=== PATIENT | female | born 2000 | race Hispanic/Latino ===

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

== ENCOUNTER 2021-05-08 21:31 | Emergency (ER) | payer OTHER, SELFPAY ==
[2021-05-08 22:57] LABS: Urine Blood Trace-intact (Negative); Urine Glucose Negative (Negative); Urine Protein Negative (Negative); Urine Specific Gravity 1.025 (1.005-1.030)
[2021-05-08 23:25] LABS: Absolute Lymphocytes (CBC) 2.9 K/uL (0.7-4.9); Basophils % 0.7 % (0-1.3); Lymphocytes % 27.2 % (15.3-44.8); MPV 8.4 fL (7.6-11.3); RBC Red Blood Cell Count 4.18 M/uL (3.86-4.86)
[2021-05-08 23:35] LABS: Urine RBC <5 /HPF (NONE SEEN)
[2021-05-08 23:36] LABS: Urine Bacteria <20 /HPF (<20)
[2021-05-08 23:59] LABS: Urine Specific Gravity/Preg 1.025 (1.005-1.030)
[2021-05-09 00:37] LABS: BUN Blood Urea Nitrogen 8 mg/dL (7-18); Bicarbonate 28 mmol/L (21-32); Glucose Level 106 mg/dL (74-106); HCG, Quantitative 3669 mIU/mL (1-3); Potassium 3.4 mmol/L (3.5-5.1); Sodium Level 140 mmol/L (136-145)
--- NOTE | 2021-05-09 02:34 | ER ---
Nurse's Notes [facility] Name: Flor Perez Age: 20 yrs Sex: Female : 2000 Arrival Date: 05/08/2021 Time: 21:36 Bed 20 Private MD: Diagnosis: Lower abdominal pain, unspecified Presentation: 05/08 21:41 Chief complaint: Patient states: pressure on bladder since 16:30 today. Coronavirus da3 screen: Vaccine status: Patient reports receiving the 2nd dose of the covid vaccine. Ebola Screen: No symptoms or risks identified at this time. Initial Sepsis Screen: Does the patient meet any 2 criteria? No. Patient's initial sepsis screen is negative. Does the patient have a suspected source of infection? No. Patient's initial sepsis screen is negative. Risk Assessment: Do you want to hurt yourself or someone else? Patient reports no desire to harm self or others. Onset of symptoms was May 08, 2021. 21:41 Method Of Arrival: Ambulatory da3 21:41 Acuity: ZACHARIAH 3 da3 Triage Assessment: 21:43 General: Appears in no apparent distress. comfortable, Behavior is calm, cooperative. da3 Pain: Complains of pain in abdomen Pain at worst was 6 out of 10 on a pain scale. 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 - Social history:: Smoking status: Patient reports the use of cigarette tobacco products, Patient denies any tobacco usage or history of. Screenin:15 Abuse screen: Denies threats or abuse. Nutritional screening: No deficits noted. as6 Tuberculosis screening: No symptoms or risk factors identified. Fall Risk None identified. Assessment: 23:14 General: Appears in no apparent distress. comfortable, Behavior is calm, cooperative. as6 Pain: Complains of pain in suprapubic area Quality of pain is described as pressure. Neuro: Level of Consciousness is awake, alert, obeys commands, Oriented to person, place, time, situation. Cardiovascular: Capillary refill < 3 seconds Patient's skin is warm and dry. Respiratory: Airway is patent Trachea midline Respiratory effort is even, unlabored, Respiratory pattern is regular, symmetrical, Breath sounds are clear bilaterally. GI: Reports lower abdominal pain, cramping. : Reports cramping, in bilateral lower quadrant(s). Derm: Skin is intact, is healthy with good turgor. 05/09 00:17 Reassessment: Patient and/or family updated on plan of care and expected duration. Pain as6 level reassessed. Patient is alert, oriented x 3, equal unlabored respirations, skin warm/dry/pink. 00:50 Reassessment: pt in ultrasound. as6 Vital Signs: 05/08 21:41 BP 124 / 77; Pulse 86; Resp 18; Temp 98.5; Pulse Ox 100% on R/A; Weight 47.63 kg; da3 Height 5 ft. 2 in. (157.48 cm); 22:48 BP 115 / 82; Pulse 77; Resp 18 S; Pulse Ox 100% on R/A; as6 23:53 BP 115 / 79; Pulse 81; Resp 18 S; Pulse Ox 100% on R/A; as6 05/09 01:29 BP 110 / 70; Pulse 77; Resp 16 S; Pulse Ox 98% on R/A; as6 02:36 BP 103 / 57; Pulse 72; Resp 18 S; Pulse Ox 99% on R/A; as6 05/08 21:41 Body Mass Index 19.20 (47.63 kg, 157.48 cm) da3 ED Course: 05/08 21:36 Patient arrived in ED. wm 21:43 Triage completed. da3 21:43 Arm band placed on right wrist. da3 22:49 Elton James, JOHN is Primary Nurse. as6 22:50 Jerel Benitez PA is PHCP. jr8 22:50 Jimmie Muro MD is Attending Physician. jr8 23:13 Inserted saline lock: 20 gauge in right antecubital area, using aseptic technique. ds4 Blood collected. 23:15 Placed in gown. Bed in low position. Call light in reach. Side rails up X2. Adult w/ as6 patient. Pulse ox on. NIBP on. Warm blanket given. 05/09 01:22 US Transvaginal Ob In Process Unspecified. EDMS 02:50 No provider procedures requiring assistance completed. IV discontinued, intact, as6 bleeding controlled, No redness/swelling at site. Pressure dressing applied. Administered Medications: No medications were administered Outcome: 02:34 Discharge ordered by . nelly 02:50 Discharged to home ambulatory, with family. as6 02:50 Condition: stable 02:50 Discharge instructions given to patient, Instructed on discharge instructions, follow up and referral plans. Demonstrated understanding of instructions, follow-up care. 02:50 Patient left the ED. as6 Signatures: Dispatcher [employer] EDMS Jerel Benitez PA PA jr8 Raul Coppola ds4 Tamera Mrelos David, RN RN da3 Elton James, RN RN as6
--- NOTE | 2021-05-09 02:34 | EDPHYS ---
Physician Documentation [facility] Name: Flor Perez Age: 20 yrs Sex: Female : 2000 Arrival Date: 05/08/2021 Time: 21:36 Bed 20 Private MD: ED Physician Jimmie Muro HPI: 05/08 23:08 This 20 yrs old Female presents to ER via Ambulatory with complaints of Lower jr8 abdominal discomfort. 23:08 The patient presents to the emergency department with abdominal pain, of the suprapubic jr8 area, that started today. course: care: none, Leakage of Fluid: none appreciated, Ultrasound: the patient has not had an ultrasound, Risk/complications: no obvious risks or complications are appreciated. Previous pregnancies: the patient has never been . Associated signs and symptoms: The patient has no apparent associated signs or symptoms. The patient has not experienced similar symptoms in the past. The patient has not recently seen a physician. 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 - Social history:: Smoking status: Patient reports the use of cigarette tobacco products, Patient denies any tobacco usage or history of. ROS: 23:08 Eyes: Negative for injury, pain, redness, and discharge, ENT: Negative for injury, jr8 pain, and discharge, Neck: Negative for injury, pain, and swelling, Cardiovascular: Negative for chest pain, palpitations, and edema, Respiratory: Negative for shortness of breath, cough, wheezing, and pleuritic chest pain, Back: Negative for injury and pain, MS/Extremity: Negative for injury and deformity, Skin: Negative for injury, rash, and discoloration, Neuro: Negative for headache, weakness, numbness, tingling, and seizure. 23:08 Abdomen/GI: Positive for abdominal pain, Negative for nausea, vomiting, and diarrhea. Exam: 23:08 Constitutional: This is a well developed, well nourished patient who is awake, alert, jr8 and in no acute distress. Cardiovascular: Regular rate and rhythm with a normal S1 and S2. No gallops, murmurs, or rubs. Normal PMI, no JVD. No pulse deficits. Respiratory: Lungs have equal breath sounds bilaterally, clear to auscultation and percussion. No rales, rhonchi or wheezes noted. No increased work of breathing, no retractions or nasal flaring. Back: No spinal tenderness. No costovertebral tenderness. Full range of motion. Skin: Warm, dry with normal turgor. Normal color with no rashes, no lesions, and no evidence of cellulitis. MS/ Extremity: Pulses equal, no cyanosis. Neurovascular intact. Full, normal range of motion. Neuro: Awake and alert, GCS 15, oriented to person, place, time, and situation. Cranial nerves II-XII grossly intact. Motor strength 5/5 in all extremities. Sensory grossly intact 23:08 Abdomen/GI: Inspection: abdomen appears normal, Bowel sounds: active, all quadrants, Palpation: soft, in all quadrants, mild abdominal tenderness, in the suprapubic area, right lower quadrant and left lower quadrant, mass, is not appreciated, rebound tenderness, is not appreciated, voluntary guarding, is not appreciated, involuntary guarding, is not appreciated, no appreciated organomegaly, Indicators: McBurney's point is not tender, Scherer's sign is negative, Rovsing's sign is negative, Liver: tenderness, is not appreciated. Vital Signs: 21:41 BP 124 / 77; Pulse 86; Resp 18; Temp 98.5; Pulse Ox 100% on R/A; Weight 47.63 kg; da3 Height 5 ft. 2 in. (157.48 cm); 22:48 BP 115 / 82; Pulse 77; Resp 18 S; Pulse Ox 100% on R/A; as6 23:53 BP 115 / 79; Pulse 81; Resp 18 S; Pulse Ox 100% on R/A; as6 05/09 01:29 BP 110 / 70; Pulse 77; Resp 16 S; Pulse Ox 98% on R/A; as6 02:36 BP 103 / 57; Pulse 72; Resp 18 S; Pulse Ox 99% on R/A; as6 05/08 21:41 Body Mass Index 19.20 (47.63 kg, 157.48 cm) da3 MDM: 05/08 22:50 Patient medically screened. [facility] 05/09 02:30 Data reviewed: vital signs, nurses notes, lab test result(s), radiologic studies, [facility] ultrasound. Data interpreted: Pulse oximetry: on room air is 98 %. Interpretation: normal. Counseling: I had a detailed discussion with the patient and/or guardian regarding: the historical points, exam findings, and any diagnostic results supporting the discharge/admit diagnosis, lab results, radiology results, the need for outpatient follow up, an OB/Gyne specialist, to return to the emergency department if symptoms worsen or persist or if there are any questions or concerns that arise at home. ED course: Discussed with patient that her hCG is in the 3000s at this time. No identifiable intrauterine noted on ultrasound at this time. This could be secondary to early based on her last menstrual period or could be early signs of ectopic. Patient needs to have a redraw of hCG on which is 48 hours to see if it doubles. Patient also needs to have another ultrasound done by end of week or first of next week as well. Patient is supposed to see her OB in 2 weeks but stated that she will call tomorrow morning to see if they can get her in sooner. They cannot I requested that patient come back in 48 hours for the redraw. Patient good with this at this time and knows to come back if she were to acutely worsening point time.. 05/08 22:20 Order name: Urine Microscopic Only; Complete Time: 23:36 [facility] 05/08 22:56 Order name: Urine Dipstick-Ancillary; Complete Time: 22:59 EDMI 05/08 22:59 Order name: Basic Metabolic Panel; Complete Time: 00:39 [facility] 05/08 22:59 Order name: CBC with Diff; Complete Time: 23:43 [facility] 05/08 22:59 Order name: Quantitative Hcg; Complete Time: 00:39 [facility] 05/08 23:02 Order name: Urine --Ancillary (enter results); Complete Time: 00:00 mw2 05/08 22:20 Order name: Urine Dipstick-Ancillary (obtain specimen); Complete Time: 22:55 [facility] 05/08 22:20 Order name: Urine Test (obtain specimen); Complete Time: 22:56 jr8 05/08 22:59 Order name: IV Saline Lock; Complete Time: 23:13 jr8 05/08 22:59 Order name: Labs collected and sent; Complete Time: 23:13 jr8 05/09 00:39 Order name: US Transvaginal Ob jr8 Administered Medications: No medications were administered Disposition: 13:05 Co-signature as Attending Physician, Jimmie Muro MD I agree with the assessment and carl plan of care. Disposition Summary: 05/09/21 02:34 Discharge Ordered Location: Home jr8 Problem: new jr8 Symptoms: have improved jr8 Condition: Stable jr8 Diagnosis - Lower abdominal pain, unspecified jr8 Followup: jr8 - With: Private Physician - When: 48 Hours - Reason: Recheck today's complaints, Continuance of care, Repeat Beta-HCG (48 Hours), Re-evaluation by your physician Discharge Instructions: - Discharge Summary Sheet jr8 - Ectopic jr8 Forms: - Medication Reconciliation Form jr8 - Thank You Letter jr8 - Antibiotic Education jr8 - Prescription Opioid Use jr8 Signatures: Dispatcher [employer] EDJimmie Fields MD MD cha Roszak, Josh, PA PA jr8 Rakesh Donnelly, RN RN da3
[2021-05-09 03:00] VITALS: TEMP 98.5
[2021-05-09 03:05] VITALS: BP 103/57; O2SAT 99
--- NOTE | 2021-05-09 12:36 | RAD REPORT ---
EXAM DESCRIPTION: US - Transvaginal OB - 05/09/2021 2:25 am CLINICAL HISTORY: 20 years Female, r/o ectopic;Abd pain COMPARISON: None. TECHNIQUE: Sonographic imaging of pelvis performed using a transvaginal transducer. FINDINGS: Uterus appears anteverted measuring 5.7 cm x 3.2 cm x 3.5 cm. Endometrial thickness is amy roximately 0.4 cm. No evidence of an intrauterine . Right ovary measures 4.8 cm x 3.9 cm x 4.1 cm. There is a simple-appearing, anechoic 3.6 cm cyst in t he right ovary. Left ovary measures 3.6 cm x 2.2 cm x 2.4 cm. Both ovaries demonstrate Doppler flow. No adnexal mass. There is a moderate amount of hypoechoic free fluid in the pelvis. IMPRESSION: 1. No evidence of an intrauterine which could be related to early or failed first trimester with ectopic not entirely excluded. Consider close interm ittent follow-up ultrasound correlated with beta-hCG level. 2. Moderate amount of free fluid in the pelvis. 3. Simple appearing right ovarian cyst measuring up to 3.6 cm, likely physiologic. Electronically signed by: Madan Thornton MD 05/09/2021 1:58 AM CONSTRUCTION REP Due to temporary technical issues with the PACS/Fluency reporting system, reports are being signed by the in house radiologist without review as a courtesy to ensure prompt reporting. The interpreting r adiologist is fully responsible for the content of the report.
== END 2021-05-09 02:50 | disposition home or self-care (01) ==
LOC: ER 21:31
DX: R10.30 Lower abdominal pain, unspecified (principal); F17.210 Nicotine dependence, cigarettes, uncomplicated
CPT/HCPCS: 36415; 76817; 80048; 81003; 81015; 81025; 84702; 85025; 99284

== ENCOUNTER 2021-05-18 13:30 | Emergency (ER) | payer OTHER ==
--- NOTE | 2021-05-18 15:36 | RAD REPORT ---
EXAM DESCRIPTION: US - Transvaginal OB - 05/18/2021 3:12 pm CLINICAL HISTORY: with abdominal pain COMPARISON: May 09, 2021 FINDINGS: The uterus measures 6 x 4 x 4 centimeters. The endometrial stripe is normal thickness. A fibroid is not seen. A gestational sac is not visualized 3.8 centimeter right ovarian cyst. Blood flow to the right ovary is present. Left ovary is normal in size and echotexture. The right and left adnexa unremarkable No significant free fluid IMPRESSION: Nonvisualization of a gestational sac within the endometrium. These findings could represent an early intrauterine in which the gestational sac is not se en. and even an ectopic can also result in this appearance. This all should be cor related clinically and with serial beta HCG levels. Followup endovaginal sonogram in 1 week recommend ed 3.8 centimeter right ovarian cyst
[2021-05-18 17:07] LABS: Absolute Lymphocytes (CBC) 1.1 K/uL (0.7-4.9); Basophils % 0.1 % (0-1.3); Hematocrit 37.6 % (36.0-45.0); Lymphocytes % 6.6 % (15.3-44.8); MPV 8.3 fL (7.6-11.3); RBC Red Blood Cell Count 4.01 M/uL (3.86-4.86)
[2021-05-18 17:24] LABS: BUN Blood Urea Nitrogen 9 mg/dL (7-18); Bicarbonate 27 mmol/L (21-32); Glucose Level 111 mg/dL (74-106); Potassium 3.8 mmol/L (3.5-5.1); Sodium Level 138 mmol/L (136-145)
--- NOTE | 2021-05-18 17:53 | EDPHYS ---
Physician Documentation [facility] Name: Flor Perez Age: 20 yrs Sex: Female : 2000 Arrival Date: 05/18/2021 Time: 13:32 Bed 11 Private MD: ED Physician Thompson Woo HPI: 05/18 23:24 This 20 yrs old Female presents to ER via Wheelchair with complaints of 7 Wks kb Preg- Vag Pain. 23:24 The patient presents to the emergency department with abdominal pain, described as kb crampy. course: care: at a clinic. Previous pregnancies: the patient has never been . Associated signs and symptoms: Pertinent positives: abdominal pain, Pertinent negatives: vaginal bleeding, vaginal discharge. The patient has not experienced similar symptoms in the past. The patient has been recently seen by a physician:. Pt states she came here over a week ago for abd cramping, had blood and US done and told to follow up. Pt followed up with OB a few days later and had labs repeated. Came in today for continued abd cramping. 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 - Social history:: Smoking status: Patient denies any tobacco usage or history of. ROS: 23:24 Constitutional: Negative for fever, chills, and weight loss. kb 23:24 Abdomen/GI: Positive for abdominal cramps. 23:24 All other systems are negative. Exam: 23:24 Constitutional: This is a well developed, well nourished patient who is awake, alert, kb and in no acute distress. Head/Face: Normocephalic, atraumatic. ENT: Moist Mucous membranes Respiratory: Respirations even and unlabored. No increased work of breathing. Talking in full sentences Skin: Warm, dry with normal turgor. Normal color. MS/ Extremity: Pulses equal, no cyanosis. Neurovascular intact. Full, normal range of motion. Neuro: Awake and alert, GCS 15, oriented to person, place, time, and situation. Moves all extremities. Normal gait. Psych: Awake, alert, with orientation to person, place and time. Behavior, mood, and affect are within normal limits. 23:24 Abdomen/GI: Inspection: abdomen appears normal, Bowel sounds: normal, in all quadrants, Palpation: soft, in all quadrants, mild abdominal tenderness, in all quadrants. Vital Signs: 14:25 Pulse 68; Resp 16; Temp 97.5; Pulse Ox 100% on R/A; Weight 46.27 kg; Height 5 ft. 2 in. ss (157.48 cm); Pain 8/10; 14:27 BP 96 / 78; ss 14:25 Body Mass Index 18.66 (46.27 kg, 157.48 cm) ss MDM: 14:34 Patient medically screened. kb 16:28 Data reviewed: vital signs, nurses notes. Data interpreted: Pulse oximetry: on room air kb is 100 %. Interpretation: normal. Physician consultation: Ronald Babb MD. 16:44 Physician consultation: Ronald Babb MD was contacted at 16:44, regarding admission, kb consult, patient's condition, and will see patient in inpatient room. 23:21 Counseling: I had a detailed discussion with the patient and/or guardian regarding: the kb historical points, exam findings, and any diagnostic results supporting the discharge/admit diagnosis, lab results, radiology results, the need for outpatient follow up, an OB/Gyne specialist, to return to the emergency department if symptoms worsen or persist or if there are any questions or concerns that arise at home. 23:22 ED course: Dr Babb came to evaluate the patient and discuss options. Pt decided to go kb home without getting Methotrexate at this time and will follow up with OB at [facility]. Risks given to pt. Pt given strict return precautions by Dr Babb and myself. Verbal understanding of all instructions received. . 05/18 14:29 Order name: HCG-Quantitative ss 05/18 14:30 Order name: HCG, Quantitative; Complete Time: 16:24 EDMS 05/18 16:36 Order name: Abo/rh Typing kb 05/18 16:36 Order name: Basic Metabolic Panel; Complete Time: 17:34 kb 05/18 16:36 Order name: CBC with Diff; Complete Time: 18:25 kb 05/18 14:28 Order name: US Transvaginal Ob; Complete Time: 15:38 ss 05/18 16:36 Order name: IV Saline Lock; Complete Time: 16:56 kb 05/18 16:36 Order name: Labs collected and sent; Complete Time: 16:56 kb 05/18 16:36 Order name: NPO; Complete Time: 16:56 kb 05/18 16:36 Order name: COVID-19 SARS RT PCR (Document "Date of Onset" if Symptomatic); Complete kb Time: 17:47 05/18 16:36 Order name: ABO/RH typing; Complete Time: 17:38 EDMS 05/18 18:21 Order name: CBC Smear Scan; Complete Time: 18:25 EDMS 05/18 18:43 Order name: ABO/RH no charge; Complete Time: 18:46 EDMS Administered Medications: No medications were administered Disposition Summary: 05/18/21 17:52 Discharge Ordered Location: Home kb Condition: Stable kb Diagnosis - Abdominal pain, Generalized - possible ectopic kb Followup: kb - With: Emergency Department - When: As needed - Reason: Worsening of condition Followup: kb - With: Private Physician - When: 2 - 3 days - Reason: Recheck today's complaints, Continuance of care, Re-evaluation by your physician Discharge Instructions: - Discharge Summary Sheet kb - Methotrexate Treatment for an Ectopic kb - Abdominal Pain During , [id number] kb - Ectopic , Soca-of-Pong kb Forms: - Medication Reconciliation Form kb - Thank You Letter kb - Antibiotic Education kb - Prescription Opioid Use kb Addendum: 05/23/2021 13:10 Co-signature as Attending Physician, Thompson Woo MD I agree with the assessment and k dr plan of care. Signatures: Dispatcher [employer] EDMS Baylee Montero, PROFESSOR OF SPORT MANAGEMENT-C ESTHER-Thompson Elise MD MD [facility] Sita El RN RN ss Corrections: (The following items were deleted from the chart) 05/18 23:24 23:22 ED course: Dr Babb came to evaluate the patient and discuss options. Pt decided kb to go home without getting Methotrexate at this time and will follow up with OB at [facility]. . kb
--- NOTE | 2021-05-18 17:53 | ER ---
Nurse's Notes [facility] Name: Flor Perez Age: 20 yrs Sex: Female : 2000 Arrival Date: 05/18/2021 Time: 13:32 Bed 11 Private MD: Diagnosis: Abdominal pain, Generalized-possible ectopic Presentation: 05/18 14:25 Chief complaint: Patient states: lower abd cramping that began 1.5 hours ago. Pt ss reports she is 7 weeks . Coronavirus screen: Client denies travel out of the [place] in the last 14 days. Ebola Screen: Patient denies exposure to infectious person. Patient denies travel to an Ebola-affected area in the 21 days before illness onset. Initial Sepsis Screen: Does the patient meet any 2 criteria? No. Patient's initial sepsis screen is negative. Does the patient have a suspected source of infection? No. Patient's initial sepsis screen is negative. Risk Assessment: Do you want to hurt yourself or someone else? Patient reports no desire to harm self or others. Onset of symptoms was May 18, 2021. 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 - Social history:: Smoking status: Patient denies any tobacco usage or history of. Screenin:45 Abuse screen: Denies threats or abuse. Denies injuries from another. Nutritional ss screening: No deficits noted. Tuberculosis screening: Never had TB. Fall Risk None identified. Assessment: 16:38 General: Appears in no apparent distress. uncomfortable, ill, slender, Behavior is ss Denies fever, feeling ill, fatigue, chills. Pain: Complains of pain in abdomen Pain currently is 7 out of 10 on a pain scale. Quality of pain is described as crampy. Neuro: Level of Consciousness is awake, alert, obeys commands, Oriented to person, place, time, situation. Cardiovascular: Capillary refill < 3 seconds is brisk in bilateral fingers Patient's skin is warm and dry. Respiratory: Airway is patent Respiratory effort is even, unlabored, Respiratory pattern is regular, symmetrical. GI: No signs and/or symptoms were reported involving the gastrointestinal system. : Denies urinary frequency, vaginal bleeding. EENT: Nares are clear Oral mucosa is moist. Derm: Skin is intact, is healthy with good turgor, Skin is dry, Skin is pink, warm \T\ dry. normal. 17:45 Reassessment: Patient appears in no apparent distress at this time. No changes from previously documented assessment. 18:00 Reassessment: Dr. Babb at bedside assessing patient. Vital Signs: 14:25 Pulse 68; Resp 16; Temp 97.5; Pulse Ox 100% on R/A; Weight 46.27 kg; Height 5 ft. 2 in. ss (157.48 cm); Pain 8/10; 14:27 BP 96 / 78; ss 14:25 Body Mass Index 18.66 (46.27 kg, 157.48 cm) ED Course: 13:32 Patient arrived in ED. ds1 14:23 Baylee Montero FNP-C is [facility]. kb 14:23 Thompson Woo MD is Attending Physician. kb 14:26 Triage completed. ss 14:26 Arm band placed on right wrist. ss 15:12 Transvaginal Ob In Process Unspecified. EDMS 16:56 Sita El, JOHN is Primary Nurse. ss 16:56 Abo/rh Typing Sent. ss 16:56 Inserted saline lock: 22 gauge in right antecubital area, using aseptic technique. Blood collected. 17:45 Patient has correct armband on for positive identification. Bed in low position. Call light in reach. 18:54 No provider procedures requiring assistance completed. IV discontinued, intact, ss bleeding controlled, No redness/swelling at site. Pressure dressing applied. Administered Medications: No medications were administered Outcome: 17:52 Discharge ordered by . kb 18:55 Discharged to home ambulatory. ss 18:55 Condition: good 18:55 Discharge instructions given to patient, family, Instructed on discharge instructions, follow up and referral plans. medication usage, Demonstrated understanding of instructions, follow-up care. 18:56 Patient left the ED. ss Signatures: Dispatcher [employer] Baylee Cheatham, ESTHER-C CONSTRUCTION CARPENTER-Sofia Wren ds1 Sita El RN RN ss
[2021-05-18 18:21] LABS: Blood Morphology Comment NOT SEEN (NOT SEEN); Platelet Estimate ADEQ; White Blood Cell Scan OK (OK)
--- NOTE | 2021-05-18 18:34 | CON ---
A 20-year-old, primigravida, was seen initially on the for abdominal discomfort. No bleeding. Quantitative level was in the 3600 range. Ultrasound demonstrated adnexal cyst, no masses and nothin g inside the uterus, and no free fluid. The patient was then seen at [facility] on the , was seen by a female acid bleacher over there, who did a pelvic exam. Did quantitative level and risen to 7000. S till no bleeding and was told to come back in 2 weeks and they would do an ultrasound. The patient _ tonight. Her quantitative level is now over 9000 and ultrasound still demonstrates no free fluid, nothing inside the uterus, and the same cyst which is persisting, but not increasing. The dre swartz still has had no bleeding. She is not in any acute distress. Methotrexate has been discussed with the patient. She is somewhat hesitant. She and her family have decided they want to get a seco nd opinion from [facility] in [place] and will either go there tonight which I suggested or in the morning . They know that if she continues to have elevated quantitative levels and nothing inside the uterus . Sooner later decision needs to be made about the methotrexate. They know that this is a medicatio n that can cause problems with the baby if it turns out the is not extrauterine and is insi de the uterus, but at this point with the levels as stated, it is highly unlikely. Her white count i s slightly elevated, but she is a little uncomfortable. She has had no medicines and requesting no m edicines here in the emergency room. She has A positive blood type. I think that her being cautious is reasonable, but she knows that she needs to follow up without fail soon and suggested again she s hould probably go to the emergency room tonight to get another opinion over there and if the levels a re still elevated and they see nothing. I think methotrexate would indeed be a good option. Full discussion with the patient and family. CAITIE/TERRELL Voice ID: [id number] Report ID: [id number]
[2021-05-18 19:10] VITALS: TEMP 97.5; O2SAT 100
[2021-05-18 19:12] VITALS: BP 96/78
== END 2021-05-18 18:56 | disposition home or self-care (01) ==
LOC: ER 13:30
DX: O26.891 Other specified pregnancy related conditions, first trimester (principal); Z3A.01 Less than 8 weeks gestation of pregnancy; Z20.822 Contact with and (suspected) exposure to COVID-19
CPT/HCPCS: 85025; 80048; 36415; 86900; 86901; 84702; 76817; 99283; U0003

== ENCOUNTER 2022-03-22 22:43 | Emergency (ER) | payer OTHER ==
--- OUTSIDE RECORDS SUMMARY | 2022-03-22 22:46 | XMS REPORT | Continuity of Care Document ---
:2000 Author Organization [facility] t Address [address] [place] [address] Care Team Providers Name Role Phone DOLORES GREGORY Primary Care Physician Unavailable DOLORES GREGORY Attending Clinician Unavailable TAMIKO DEY Attending Clinician Unavailable Tamiko Dey MD Attending Clinician Dolores Mccollum Attending Clinician ARUNA GOLD Attending Clinician Unavailable Aruna Wan Attending Clinician Doctor Unassigned, Ramsay Attending Clinician Unavailable Payers Payer Name Policy Type Policy Number Effective Date Expiration Date [facility] [id number] 2021 CHOICE MEDICAID 00:00:00 Problems Condition Condition Condition Status Onset Resolution Last Treating Co mments Source Name Details Category Date Date Treatment Clinician Date No known No known Disease Unive rs active active ity of problems problems [facility] Allergies, Adverse Reactions, Alerts Allergy Allergy Status Severity Reaction(s) Onset Inactive Treating Comm ents Source Name Type Date Date Clinician NO KNOWN Drug Active Univers ALLERGIE Class ity of S [facility] Social History Social Habit Start Date Stop Date Quantity Comments Source Exposure to Not sure [facility] SARS-CoV-2 [facility] (event) Branch Alcohol intake 2021-06-07 2021-06-07 Ex-drinker [facility] 00:00:00 00:00:00 (finding) [facility] Tobacco use and 2021-05-11 2021-05-11 Never used Universit y of exposure 00:00:00 00:00:00 [facility] Sex Assigned At [birth year] Universit y of 00:00:00 00:00:00 [facility] Smoking Status Start Date Stop Date Source Never smoker [facility] Medications Ordered Filled Start Stop Current Ordering Indication Dosage Frequency Signature Comments Components Source Medication Medication Date Date Medication? Clinician (SIG) Name Name ibuprofen 2020-05- No [id number] 800mg Take 1 Univers 800 mg 07-20 tablet by ity of tablet 00:00: 00:00 mouth [place] 00 :00 every 8 Medical (eight) Branch hours. HYDROcodone 2020-05- No [id number] 1{tbl} Take 1 U nivers -acetaminop 07-20 tablet by it y of hen 5-325 00:00: 00:00 mouth [place] mg tablet 00 :00 every 6 Medical (six) Branch hours as needed for Pain (scale 4-6) or Pain (scale 7-10). Indication s: acute pain PNV 67-iron 2020-05- No [id number] 1{capsu Take 1 Univers ps-folate 2-16 06-07 le} capsule by ity of no.1-dha 00:00: 00:00 mouth [place] (VITAFOL 00 :00 daily. Medical ULTRA) 29 Branch mg iron- 1 mg-200 mg Cap Vital Signs Vital Name Observation Time Observation Value Comments Source Systolic blood 2021-06-07 19:06:00 114 mm[Hg] Univer sity of pressure [facility] Diastolic blood 2021-06-07 19:06:00 76 mm[Hg] Unive rsity of pressure [facility] Heart rate 2021-06-07 19:06:00 82 /min [facility] Body temperature 2021-06-07 19:06:00 36.61 [facility] Respiratory rate 2021-06-07 19:06:00 18 /min [facility] Body height 2021-06-07 19:06:00 157.5 cm [facility] Body weight 2021-06-07 19:06:00 47.174 kg [facility] BMI 2021-06-07 19:06:00 19.02 kg/m2 [facility] Body mass index 2021-06-07 19:06:00 15.74 % Unive rsity of (BMI) [Percentile] [facility] Per age and sex Branch Procedures This patient has no known procedures. Encounters Start End Encounter Admission Attending Care Care Encounter Source Date/Time Date/Time Type Type Clinicians Facility Department ID 2021-06-08 2021-06-08 Outpatient Edward GREGORY [facility] [id number] Univers 08:45:00 08:45:00 DOLORESSHAUN pemberton [facility] 2021-06-08 2021-06-08 Outpatient Edward GREGORY [facility] [id number] Univers 08:45:00 08:45:00 DOLORES pemberton [facility] 2021-06-08 2021-06-08 Outpatient Edward GREGORY [facility] [id number] Univers 08:45:00 08:45:00 DOLORES [facility] 2021-06-07 2021-06-07 Outpatient R MYA [facility] [id number] Univers 13:00:00 13:18:55 TAMIKO huertajodi [facility] 2021-06-07 2021-06-07 Office Adnadine, [facility] [id number] Univers 13:00:00 13:18:55 Visit Tamiko JONES [id number] niecy [facility] [id number] Ken RAMSEY [id number] [place] [address] 2021-05-24 2021-05-24 Outpatient P [facility] [id number] Univers 15:30:00 15:30:00 ity [facility] Branch 2021-05-22 2021-05-22 Telephone [facility] [id number] Univers 00:00:00 00:00:00 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 ERT [id number] Univers 22:19:00 07:47:00 [facility] 2021-05-18 2021-05-19 Emergency [facility] [id number] Univers 22:19:00 07:47:00 [facility] [id number] i [id number] [id number] [address] 2021-05-18 2021-05-19 Outpatient X 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 [id number] Fausto as [phone] [place] [address] Branch Results This patient has no known results.
[2022-03-22 23:13] LABS: Urine Blood 3+ (Negative); Urine Glucose Negative (Negative); Urine Protein 1+ (Negative)
--- NOTE | 2022-03-22 23:20 | ER ---
Nurse's Notes [facility] Name: Flor Perez Age: 21 yrs Sex: Female : 2000 Arrival Date: 03/22/2022 Time: 22:45 Bed 4 Private MD: Diagnosis: UTI/ Urinary tract infection, site not specified Presentation: 03/22 22:55 Chief complaint: Patient states: I am pretty sure I have a UTI, I am having lower back tw5 discomfort, it does not really hurt. Coronavirus screen: Vaccine status: Patient reports receiving the 2nd dose of the covid vaccine. Ebola Screen: No symptoms or risks identified at this time. Initial Sepsis Screen: Does the patient meet any 2 criteria? No. Patient's initial sepsis screen is negative. Does the patient have a suspected source of infection? No. Patient's initial sepsis screen is negative. Risk Assessment: Do you want to hurt yourself or someone else? Patient reports no desire to harm self or others. Onset of symptoms was March 22, 2022. 22:55 Method Of Arrival: Ambulatory tw5 22:55 Acuity: ZACHARIAH 3 tw5 Historical: - Allergies: 23:15 No Known Allergies; lg3 - Home Meds: 23:15 None [Active]; lg3 - PMHx: 23:15 None; lg3 - PSHx: 23:15 None; lg3 - Immunization history:: Adult Immunizations up to date. - Social history:: Smoking status: Patient denies any tobacco usage or history of. Patient/guardian denies using alcohol, street drugs. Screenin:59 Abuse screen: Denies threats or abuse. Denies injuries from another. Nutritional lg3 screening: No deficits noted. Tuberculosis screening: No symptoms or risk factors identified. Fall Risk None identified. Assessment: 22:59 General: Appears in no apparent distress. comfortable, Behavior is calm, cooperative. lg3 Pain: Complains of pain in low back area Pain currently is 0 out of 10 on a pain scale. Quality of pain is described as aching. Neuro: No deficits noted. [place] Agitation-Sedation Scale (RASS): 0 - Alert and Calm Level of Consciousness is awake, alert, obeys commands, Oriented to person, place, time, situation. Cardiovascular: No deficits noted. Denies chest pain, shortness of breath, Capillary refill < 3 seconds Clubbing of nail beds is absent JVD is absent Patient's skin is warm and dry. Respiratory: No deficits noted. Airway is patent Trachea midline Respiratory effort is even, unlabored, Respiratory pattern is regular, symmetrical, Breath sounds are clear bilaterally. GI: Abdomen is flat, non-distended, Bowel sounds present X 4 quads. Abd is soft and non tender X 4 quads. : No deficits noted. Reports urgency, urinary frequency. EENT: No deficits noted. No signs and/or symptoms were reported regarding the EENT system. Derm: No deficits noted. No signs and/or symptoms reported regarding the dermatologic system. Skin is intact, is healthy with good turgor, Skin is dry, Skin is normal, Skin temperature is warm. Musculoskeletal: No deficits noted. Circulation, motion, and sensation intact. Range of motion: intact in all extremities. 23:27 Reassessment: Patient appears in no apparent distress at this time. No changes from lg3 previously documented assessment. Patient and/or family updated on plan of care and expected duration. Pain level reassessed. Patient is alert, oriented x 3, equal unlabored respirations, skin warm/dry/pink. Vital Signs: 22:55 BP 118 / 84; Pulse 82; Resp 17 S; Temp 98(O); Pulse Ox 98% on R/A; Weight 47.17 kg (R); tw5 Height 5 ft. 2 in. (157.48 cm) (R); Pain 0/10; 22:55 Body Mass Index 19.02 (47.17 kg, 157.48 cm) tw5 ED Course: 22:45 Patient arrived in ED. jj6 22:46 Isabel Bowen [facility]NP-C [facility]. snw 22:46 Thierry Barbosa MD is Attending Physician. snw 22:50 Elton James, JOHN is Primary Nurse. as6 22:57 Triage completed. tw5 22:59 Patient has correct armband on for positive identification. Bed in low position. Call lg3 light in reach. Side rails up X 1. Client placed on continuous cardiac and pulse oximetry monitoring. NIBP monitoring applied. Door closed. Noise minimized. Warm blanket given. Family accompanied patient. 23:14 Arm band placed on left wrist. lg3 23:14 Urine Culture Sent. lg3 23:14 Urine Microscopic Only Sent. lg3 23:27 No provider procedures requiring assistance completed. Patient did not have IV access lg3 during this emergency room visit. Administered Medications: 23:34 Drug: Motrin (ibuprofen) 600 mg Route: PO; lg3 23:38 Follow up: Response: No adverse reaction lg3 23:38 Drug: Rocephin (cefTRIAXone) 1 grams Route: IM; Site: left vastus lateralis; lg3 23:38 Follow up: Response: No adverse reaction; Medication administered at discharge. lg3 Medication: 23:28 VIS not applicable for this client. lg3 Outcome: 23:18 Discharge ordered by . snoseas 23:27 Discharged to home ambulatory. lg3 23:27 Condition: stable 23:27 Discharge instructions given to patient, Instructed on discharge instructions, follow up and referral plans. medication usage, Demonstrated understanding of instructions, follow-up care, medications, Prescriptions given X 2. 23:40 Patient left the ED. lg3 Addendum: 03/27/2022 09:18 Addendum: Culture Results: Positive urine culture. Bacteria is resistant to, has a a5 intermediate sensitivity, or is not tested against prescribed antibiotics. Report given to JENNIFER for further evaluation and then to energy auditor for follow up with patient. Prescription called-in to pharmacy of choice. To [facility] pharmacy [facility] [employer] in [place], [place]. Called in Macrobid 100 mg PO BID x 10 days per [place]. Pt instructed to stop Augmentin, pt verbalized understanding. Signatures: Isabel Bowen, STAFFING RN-C STAFFING RN-Csnw Geri Allen, RN RN aa5 Carlene Villasenor RN RN lg3 Kortney Stephens tw5 Flor Topete jj6 Elton James RN RN as6
--- NOTE | 2022-03-22 23:20 | EDPHYS ---
Physician Documentation [facility] Name: Flor Perez Age: 21 yrs Sex: Female : 2000 Arrival Date: 03/22/2022 Time: 22:45 Bed 4 Private MD: ED Physician Thierry Barbosa HPI: 03/22 22:55 This 21 yrs old Female presents to ER via Unassigned with complaints of UTI snw SYMPTOMS. 22:55 The patient presents with urinary symptoms, dysuria, frequency, urgency. Onset: The snw symptoms/episode began/occurred suddenly, 4 day(s) ago, and became persistent. Associated signs and symptoms: Pertinent positives: back pain. Severity of symptoms: At their worst the symptoms were mild, moderate. The patient has experienced similar episodes in the past. It is unknown whether or not the patient has recently seen a physician. Historical: - Allergies: 23:15 No Known Allergies; lg3 - Home Meds: 23:15 None [Active]; lg3 - PMHx: 23:15 None; lg3 - PSHx: 23:15 None; lg3 - Immunization history:: Adult Immunizations up to date. - Social history:: Smoking status: Patient denies any tobacco usage or history of. Patient/guardian denies using alcohol, street drugs. ROS: 22:54 Constitutional: Negative for fever, chills, and weight loss, Eyes: Negative for injury, snw pain, redness, and discharge, ENT: Negative for injury, pain, and discharge, Neck: Negative for injury, pain, and swelling, Cardiovascular: Negative for chest pain, palpitations, and edema, Respiratory: Negative for shortness of breath, cough, wheezing, and pleuritic chest pain, Abdomen/GI: Negative for abdominal pain, nausea, vomiting, diarrhea, and constipation. 22:54 MS/Extremity: Negative for injury and deformity, Skin: Negative for injury, rash, and discoloration, Neuro: Negative for headache, weakness, numbness, tingling, and seizure. 22:54 Back: Positive for pain at rest, pain with movement, of the low back area. 22:54 : Positive for urinary symptoms, urinary frequency. Exam: 22:53 Constitutional: This is a well developed, well nourished patient who is awake, alert, snw and in no acute distress. Head/Face: Normocephalic, atraumatic. Eyes: Pupils equal round and reactive to light, extra-ocular motions intact. Lids and lashes normal. Conjunctiva and sclera are non-icteric and not injected. Cornea within normal limits. Periorbital areas with no swelling, redness, or edema. ENT: Nares patent. No nasal discharge, no septal abnormalities noted. Tympanic membranes are normal and external auditory canals are clear. Oropharynx with no redness, swelling, or masses, exudates, or evidence of obstruction, uvula midline. Mucous membranes moist. Neck: Trachea midline, no thyromegaly or masses palpated, and no cervical lymphadenopathy. Supple, full range of motion without nuchal rigidity, or vertebral point tenderness. No Meningismus. Chest/axilla: Normal chest wall appearance and motion. Nontender with no deformity. No lesions are appreciated. Cardiovascular: Regular rate and rhythm with a normal S1 and S2. No gallops, murmurs, or rubs. Normal PMI, no JVD. No pulse deficits. Respiratory: Lungs have equal breath sounds bilaterally, clear to auscultation and percussion. No rales, rhonchi or wheezes noted. No increased work of breathing, no retractions or nasal flaring. Abdomen/GI: Soft, non-tender, with normal bowel sounds. No distension or tympany. No guarding or rebound. No evidence of tenderness throughout. 22:53 Skin: Warm, dry with normal turgor. Normal color with no rashes, no lesions, and no evidence of cellulitis. MS/ Extremity: Pulses equal, no cyanosis. Neurovascular intact. Full, normal range of motion. Neuro: Awake and alert, GCS 15, oriented to person, place, time, and situation. Cranial nerves II-XII grossly intact. Motor strength 5/5 in all extremities. Sensory grossly intact. Cerebellar exam normal. Normal gait. 22:53 Back: pain, that is moderate, of the low back area. Vital Signs: 22:55 BP 118 / 84; Pulse 82; Resp 17 S; Temp 98(O); Pulse Ox 98% on R/A; Weight 47.17 kg (R); tw5 Height 5 ft. 2 in. (157.48 cm) (R); Pain 0/10; 22:55 Body Mass Index 19.02 (47.17 kg, 157.48 cm) tw5 MDM: 22:51 Patient medically screened. snw 23:19 Data reviewed: vital signs, nurses notes. Data interpreted: Pulse oximetry: on room air snw is 98 %. Interpretation: normal. Counseling: I had a detailed discussion with the patient and/or guardian regarding: the historical points, exam findings, and any diagnostic results supporting the discharge/admit diagnosis, lab results. Special discussion: Based on the history and exam findings, there is no indication for further emergent testing or inpatient evaluation. I discussed with the patient/guardian the need to see the primary care provider for further evaluation of the symptoms. 03/22 22:46 Order name: Urine Culture snw 03/22 22:46 Order name: Urine Microscopic Only snw 03/22 23:14 Order name: Urine Dipstick-Ancillary; Complete Time: 23:17 EDMS 03/22 23:15 Order name: Urine --Ancillary (enter results) ds4 03/22 22:46 Order name: Urine Dipstick-Ancillary (obtain specimen); Complete Time: 23:14 snw 03/22 22:46 Order name: Urine Test (obtain specimen); Complete Time: 23:14 snw Administered Medications: 23:34 Drug: Motrin (ibuprofen) 600 mg Route: PO; lg3 23:38 Follow up: Response: No adverse reaction lg3 23:38 Drug: Rocephin (cefTRIAXone) 1 grams Route: IM; Site: left vastus lateralis; lg3 23:38 Follow up: Response: No adverse reaction; Medication administered at discharge. lg3 Disposition: 03/23 01:12 Co-signature as Attending Physician, Thierry Barbosa MD. rn Disposition Summary: 03/22/22 23:18 Discharge Ordered Location: Home snw Condition: Stable snw Diagnosis - UTI/ Urinary tract infection, site not specified snw Followup: snw - With: Emergency Department - When: As needed - Reason: Worsening of condition Followup: snw - With: Private Physician - When: 2 - 3 days - Reason: Recheck today's complaints, Continuance of care, Re-evaluation by your physician Discharge Instructions: - Discharge Summary Sheet snw - Urinary Tract Infection, Adult snw - Rehydration, Adult snw Forms: - Medication Reconciliation Form snw - Thank You Letter snw - Antibiotic Education snw - Prescription Opioid Use snw Prescriptions: - Augmentin 875-125 mg Oral Tablet - take 1 tablet by ORAL route every 12 hours for 10 days; 20 tablet; Refills: 0, snw Product Selection Permitted - promethazine 25 mg Oral Tablet - take 1 tablet by ORAL route every 6 hours As needed; 20 tablet; Refills: 0, snw Product Selection Permitted Signatures: Dispatcher [employer] EDIsabel Coyle FNP-C DRY KILN LOADER-Csnw Thierry Barbosa MD MD rn Gibson, Lacie, RN RN lg3
[2022-03-22] MEDS ORDERED: IBUPROFEN 400 MG TAB ONE (23:27)
[2022-03-22] MEDS ORDERED: CEFTRIAXONE 1000 MG/VIAL ONE (23:27)
[2022-03-22] MEDS ORDERED: IBUPROFEN 200 MG TAB PO ONE (23:27)
[2022-03-22] MEDS ORDERED: WATER FOR INJ,STERILE 10 ML ONE (23:28)
[2022-03-22 23:40] LABS: Urine Bacteria <20 /HPF (<20); Urine RBC >50 /HPF (None Seen)
[2022-03-22 23:45] VITALS: BP 118/84; TEMP 98; O2SAT 98
== END 2022-03-22 23:40 | disposition home or self-care (01) ==
LOC: ER 22:43
DX: N39.0 Urinary tract infection, site not specified (principal)
CPT/HCPCS: 81003; 81015; 81025; 87077; 87086; 87088; 87186; 96372; 99283

== ENCOUNTER 2022-05-26 19:28 | Emergency (ER) | payer OTHER ==
--- OUTSIDE RECORDS SUMMARY | 2022-05-26 19:37 | XMS REPORT | Continuity of Care Document ---
:2000 Author Organization [facility] t Address [address] [place] [address] Care Team Providers Name Role Phone DOLORES GREGORY Primary Care Physician Unavailable DOLORES GREGORY Attending Clinician Unavailable TAMIKO DEY Attending Clinician Unavailable Tamiko Dey MD Attending Clinician Dolores Mccollum Attending Clinician ARUNA GOLD Attending Clinician Unavailable Aruna Wan Attending Clinician Doctor Unassigned, Wall Attending Clinician Unavailable Payers Payer Name Policy Type Policy Number Effective Date Expiration Date [facility] [id number] 2021 CHOICE MEDICAID 00:00:00 Problems Condition Condition Condition Status Onset Resolution Last Treating Co mments Source Name Details Category Date Date Treatment Clinician Date No known No known Disease Unive rs active active ity of problems problems [facility] Allergies, Adverse Reactions, Alerts Allergy Allergy Status Severity Reaction(s) Onset Inactive Treating Comm ents Source Name Type Date Date Clinician NO KNOWN Drug Active Univers ALLERGIE Class ity of S [facility] Social History Social Habit Start Date Stop Date Quantity Comments Source Exposure to Not sure [facility] SARS-CoV-2 [facility] (event) Branch Alcohol intake 2021-06-07 2021-06-07 Ex-drinker [facility] 00:00:00 00:00:00 (finding) [facility] Tobacco use and 2021-05-11 2021-05-11 Never used Universit y of exposure 00:00:00 00:00:00 [facility] Sex Assigned At [birth year] Universit y of 00:00:00 00:00:00 [facility] Smoking Status Start Date Stop Date Source Never smoker [facility] Medications Ordered Filled Start Stop Current Ordering Indication Dosage Frequency Signature Comments Components Source Medication Medication Date Date Medication? Clinician (SIG) Name Name ibuprofen 2020-05- No [id number] 800mg Take 1 Univers 800 mg 07-20 [...] s: acute pain PNV 67-iron 2020-05- No [id number] 1{capsu Take 1 Univers ps-folate 2-16 06-07 le} capsule by ity of no.1-dha 00:00: 00:00 mouth [place] (VITAFOL 00 :00 daily. Medical ULTRA) 29 Branch mg iron- 1 mg-200 mg Cap Vital Signs Vital Name Observation Time Observation Value Comments Source Systolic blood 2021-06-07 19:06:00 114 mm[Hg] Univer sity of pressure [facility] Diastolic blood 2021-06-07 19:06:00 76 mm[Hg] Unive rsity of pressure [facility] Heart rate 2021-06-07 19:06:00 82 /min [facility] Body temperature 2021-06-07 19:06:00 36.61 [facility] Respiratory rate 2021-06-07 19:06:00 18 /min [facility] height 2021-06-07 19:06:00 157.5 cm [facility] Body weight 2021-06-07 19:06:00 47.174 kg [facility] BMI 2021-06-07 19:06:00 19.02 kg/m2 [facility] Body mass index 2021-06-07 19:06:00 15.74 % Unive rsity of (BMI) [Percentile] [facility] Per age and sex Branch Procedures This patient has no known procedures. Encounters Start End Encounter Admission Attending Care Care Encounter Source Date/Time Date/Time Type Type Clinicians Facility Department ID 2021-06-08 2021-06-08 Outpatient Edward GREGORY [facility] [id number] Univers 08:45:00 08:45:00 DOLORESSHAUN pemberton [facility] 2021-06-08 2021-06-08 Outpatient Edward GREGORY [facility] [id number] Univers 08:45:00 08:45:00 DOLORES pemberton [facility] 2021-06-08 2021-06-08 Outpatient Edward GREGORY [facility] [id number] Univers 08:45:00 08:45:00 DOLORES [facility] 2021-06-07 2021-06-07 Outpatient R MYA [facility] [id number] Univers 13:00:00 13:18:55 TAMIKO huertajodi [facility] 2021-06-07 2021-06-07 Office Adnadine, [facility] [id number] Univers 13:00:00 13:18:55 Visit Tamiko JONES [id number] niecy [facility] [id number] Ken RAMSEY [phone] Mt dical [address] 2021-05-24 2021-05-24 Outpatient P [facility] [id number] Univers 15:30:00 15:30:00 ity [facility] Branch 2021-05-22 2021-05-22 [facility] [id number] Univers 00:00:00 00:00:00 Dolores N TRAVEL SERVICES PROFESSIONAL [id number] it y of [facility] [id number] Fausto as MATERNAL [id number] [facility] & [address] 2021-05-19 2021-05-19 [facility] [id number] Univers 14:30:00 16:45:00 Tamiko JONES [id number] [id number] [id number] [facility] [address] 2021-05-18 2021-05-19 Outpatient X [facility] ERT [id number] Univers 22:19:00 07:47:00 [facility] 2021-05-18 2021-05-19 Emergency [facility] [id number] Univers 22:19:00 07:47:00 [facility] [id number] i ty [id number] [id number] [address] 2021-05-18 2021-05-19 Outpatient X [facility] ERT [id number] Univers 22:19:00 07:47:00 [facility] 2021-05-12 2021-05-12 [facility]phone [facility] [id number] Univers 00:00:00 00:00:00 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 [id number] [facility] 15:30:00 16:03:47 DOLORES pemberton [facility] 2021-05-11 2021-05-11 Orders Doctor KATHERINE [id number] Univers 00:00:00 00:00:00 Only Unassigned, GEOVANNY [id number] ity of [place] [facility] [id number] Fausto as [phone] [place] [address] Branch Results This patient has no known results.
[2022-05-26 20:00] LABS: Urine Blood Negative (Negative); Urine Glucose Negative (Negative); Urine Protein Trace (Negative); Urine Specific Gravity >=1.030 (1.005-1.030)
[2022-05-26 20:12] LABS: Urine Specific Gravity/Preg >1.030 (1.005-1.030)
[2022-05-26 20:20] LABS: Urine Bacteria None Seen /HPF (<20); Urine Mucus 1+ /HPF (None Seen); Urine RBC <5 /HPF (None Seen)
[2022-05-26 21:13] LABS: Absolute Lymphocytes (CBC) 3.1 K/uL (0.7-4.9); Lymphocytes % 32.9 % (15.3-44.8); MCV 92.2 fL (80-100); RBC Red Blood Cell Count 4.34 M/uL (3.86-4.86)
--- NOTE | 2022-05-26 21:16 | RAD REPORT ---
EXAM DESCRIPTION: US - Transvaginal OB - 05/26/2022 9:01 pm CLINICAL HISTORY: ABD PAIN COMPARISON: Transvaginal OB dated 05/18/2021 FINDINGS: Single IUP identified. heart tones measured at 134 beats per minute. The mean sac d iameter measures 7 millimeters. This is consistent with 5 week 2 day GLYNN of 01/24/2023. Yolk sac kathleen ures 2 millimeters. Neither ovary was visualized. IMPRESSION: Single IUP with positive heart tones measuring 5 week 2 days with GLYNN of 01/24/2023 . Neither ovary visualized.
[2022-05-26 21:50] LABS: Potassium 3.3 mmol/L (3.5-5.1)
--- NOTE | 2022-05-26 21:51 | ER ---
Nurse's Notes [facility] Name: Flor Perez Age: 21 yrs Sex: Female : 2000 Arrival Date: 05/26/2022 Time: 19:31 Bed 10 Private MD: Diagnosis: Threatened ; related conditions, unspecified, first trimester Presentation: 05/26 20:03 Chief complaint: Patient states: "I am having abdominal cramping. The past two nights tw5 it has become more sharp. I have a history of an ectopic , so I just wanted to make sure everything is okay.". Coronavirus screen: Vaccine status: Patient reports receiving the 2nd dose of the covid vaccine. Idiro. Ebola Screen: Patient negative for fever greater than or equal to 101.5 degrees Fahrenheit, and additional compatible Ebola Virus Disease symptoms Patient denies exposure to infectious person. Patient denies travel to an Ebola-affected area in the 21 days before illness onset. Initial Sepsis Screen: Does the patient meet any 2 criteria? No. Patient's initial sepsis screen is negative. Does the patient have a suspected source of infection? No. Patient's initial sepsis screen is negative. Risk Assessment: Do you want to hurt yourself or someone else? Patient reports no desire to harm self or others. Onset of symptoms was May 26, 2022. 20:03 Method Of Arrival: Ambulatory tw5 20:03 Acuity: ZACHARIAH 3 tw5 Triage Assessment: 20:05 General: Appears in no apparent distress. Behavior is calm, cooperative, appropriate tw5 for age. Pain: Pain currently is 0 out of 10 on a pain scale. at worst was 5 out of 10 on a pain scale. 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 - Social history:: Smoking status: Patient denies any tobacco usage or history of. - History obtained from: ED record shows previous ectopic, pt was dc'd to f/u but states pain worsened. Pt went to [facility] and had ruptured ectopic with removal of fallopian tube (she thinks the right one). Screenin:07 [facility] ED Fall Risk Assessment (Adult) History of falling in the last 3 months, tw5 including since admission No falls in past 3 months (0 pts). Abuse screen: Denies threats or abuse. Denies injuries from another. Nutritional screening: No deficits noted. Tuberculosis screening: No symptoms or risk factors identified. Assessment: 20:07 General: Appears in no apparent distress. Behavior is calm, cooperative, appropriate tw5 for age. Pain: Complains of pain in suprapubic area Pain currently is 0 out of 10 on a pain scale. Neuro: No deficits noted. Cardiovascular: No deficits noted. Respiratory: No deficits noted. 20:34 Reassessment: Patient appears in no apparent distress at this time. No changes from tw5 previously documented assessment. Patient and/or family updated on plan of care and expected duration. Pain level reassessed. Patient is alert, oriented x 3, equal unlabored respirations, skin warm/dry/pink. Vital Signs: 20:03 BP 117 / 66; Pulse 73; Resp 18; Temp 99.2; Pulse Ox 100% ; Weight 45.36 kg; Height 5 tw5 ft. 1 in. (154.94 cm); Pain 0/10; 20:03 Body Mass Index 18.89 (45.36 kg, 154.94 cm) tw5 ED Course: 19:31 Patient arrived in ED. jj6 19:33 Isabel Bow[facility]C [facility] snw 19:33 Jimmie Muro MD is Attending Physician. snw 20:05 Triage completed. tw5 20:05 Arm band placed on. tw5 20:07 Patient has correct armband on for positive identification. Bed in low position. Call tw5 light in reach. Side rails up X 1. Door closed. Noise minimized. Lights dimmed. Warm blanket given. Verbal reassurance given. 20:07 Urine --Ancillary (enter results) Sent. tw5 20:11 Urine Culture Sent. zm 20:11 Urine Microscopic Only Sent. zm 20:34 Kortney Stephens is Primary Nurse. tw5 20:34 Initial lab(s) drawn, by me, sent to lab. Inserted saline lock: 20 gauge in right tw5 antecubital area, using aseptic technique. Blood collected. 20:34 Abo/rh Typing Sent. tw5 20:34 Basic Metabolic Panel Sent. tw5 20:34 CBC with Diff Sent. tw5 20:34 Quantitative Hcg Sent. tw5 21:03 US Transvaginal Ob In Process Unspecified. EDMS 21:56 No provider procedures requiring assistance completed. IV discontinued, intact, tw5 bleeding controlled, No redness/swelling at site. Pressure dressing applied. Administered Medications: No medications were administered Medication: 20:07 VIS not applicable for this client. tw5 Outcome: 21:51 Discharge ordered by MD. snw 21:56 Discharged to home ambulatory, with family. tw5 21:56 Condition: stable 21:56 Condition: good 21:56 Discharge instructions given to 21:56 Discharge instructions given to patient, Instructed on discharge instructions, follow up and referral plans. Demonstrated understanding of instructions, follow-up care. 21:56 Patient left the ED. tw5 Signatures: Dispatcher [employer] EDNC Isabel oBwen, EHSAN SANTANA-Kortney Ohara tw5 Flor Topete jj6 Nessa Rocha
--- NOTE | 2022-05-26 21:52 | EDPHYS ---
Physician Documentation [facility] Name: Flor Perez Age: 21 yrs Sex: Female : 2000 Arrival Date: 05/26/2022 Time: 19:31 Bed 10 Private MD: ED Physician Jimmie Muro HPI: 05/26 21:42 This 21 yrs old Female presents to ER via Ambulatory with complaints of Pelvic snw Pain, Possibly , pt stated she does not know gestation. 21:42 The patient presents with pelvic pain. Onset: The symptoms/episode began/occurred snw acutely. Modifying factors: The symptoms are alleviated by nothing. Associated signs and symptoms: The patient has no apparent associated signs or symptoms. Severity of symptoms: At their worst the symptoms were very mild, mild. The patient's method of control includes nothing. The patient has experienced a previous episode, 2020. The patient has not recently seen a physician. TAPPER BIT: 20:05 LMP 04/06/2022, Verified, EDC 01/11/2023, Gestational age from LMP: 7 weeks 2 tw5 days 21:42 1, Full Term 0 snw Historical: - Allergies: 20:05 No Known Allergies; tw5 - Home Meds: 20:05 Vitamin Oral [Active]; tw5 - PMHx: 20:05 ectopic ; tw5 - Immunization history:: Flu vaccine is not up to date. - Social history:: Smoking status: Patient denies any tobacco usage or history of. - History obtained from: ED record shows previous ectopic, pt was dc'd to f/u but states pain worsened. Pt went to [facility] and had ruptured ectopic with removal of fallopian tube (she thinks the right one). ROS: 21:40 Constitutional: Negative for fever, chills, and weight loss, Eyes: Negative for injury, snw pain, redness, and discharge, ENT: Negative for injury, pain, and discharge, Neck: Negative for injury, pain, and swelling, Cardiovascular: Negative for chest pain, palpitations, and edema, Respiratory: Negative for shortness of breath, cough, wheezing, and pleuritic chest pain, Back: Negative for injury and pain, : Negative for injury, bleeding, discharge, and swelling, MS/Extremity: Negative for injury and deformity, Skin: Negative for injury, rash, and discoloration, Neuro: Negative for headache, weakness, numbness, tingling, and seizure, Psych: Negative for depression, anxiety, suicide ideation, homicidal ideation, and hallucinations. 21:40 Abdomen/GI: Positive for abdominal pain, of the right lower quadrant and left lower quadrant. Exam: 21:40 Constitutional: This is a well developed, well nourished patient who is awake, alert, snw and in no acute distress. Head/Face: Normocephalic, atraumatic. Eyes: Pupils equal round and reactive to light, extra-ocular motions intact. Lids and lashes normal. Conjunctiva and sclera are non-icteric and not injected. Cornea within normal limits. Periorbital areas with no swelling, redness, or edema. ENT: Nares patent. No nasal discharge, no septal abnormalities noted. Tympanic membranes are normal and external auditory canals are clear. Oropharynx with no redness, swelling, or masses, exudates, or evidence of obstruction, uvula midline. Mucous membranes moist. Neck: Trachea midline, no thyromegaly or masses palpated, and no cervical lymphadenopathy. Supple, full range of motion without nuchal rigidity, or vertebral point tenderness. No Meningismus. Chest/axilla: Normal chest wall appearance and motion. Nontender with no deformity. No lesions are appreciated. Cardiovascular: Regular rate and rhythm with a normal S1 and S2. No gallops, murmurs, or rubs. Normal PMI, no JVD. No pulse deficits. Respiratory: Lungs have equal breath sounds bilaterally, clear to auscultation and percussion. No rales, rhonchi or wheezes noted. No increased work of breathing, no retractions or nasal flaring. Abdomen/GI: Soft, non-tender, with normal bowel sounds. No distension or tympany. No guarding or rebound. No evidence of tenderness throughout. Back: No spinal tenderness. No costovertebral tenderness. Full range of motion. Skin: Warm, dry with normal turgor. Normal color with no rashes, no lesions, and no evidence of cellulitis. MS/ Extremity: Pulses equal, no cyanosis. Neurovascular intact. Full, normal range of motion. Neuro: Awake and alert, GCS 15, oriented to person, place, time, and situation. Cranial nerves II-XII grossly intact. Motor strength 5/5 in all extremities. Sensory grossly intact. Cerebellar exam normal. Normal gait. Psych: Awake, alert, with orientation to person, place and time. Behavior, mood, and affect are within normal limits. Vital Signs: 20:03 BP 117 / 66; Pulse 73; Resp 18; Temp 99.2; Pulse Ox 100% ; Weight 45.36 kg; Height 5 tw5 ft. 1 in. (154.94 cm); Pain 0/10; 20:03 Body Mass Index 18.89 (45.36 kg, 154.94 cm) tw5 MDM: 20:22 Patient medically screened. snw 20:26 ED course: Pt is B positive, had ectopic in 2020 at 7 weeks. snw 21:38 Differential diagnosis: dysmenorrhea, ectopic , iup. Data reviewed: vital snw signs, nurses notes, lab test result(s), Beta HCG: CBC, Rh: urinalysis, radiologic studies, ultrasound. Data interpreted: Pulse oximetry: on room air is 100 %. Interpretation: normal. Counseling: I had a detailed discussion with the patient and/or guardian regarding: the historical points, exam findings, and any diagnostic results supporting the discharge/admit diagnosis, lab results, radiology results, the need for outpatient follow up, for definitive care, an OB/Gyne specialist, to return to the emergency department if symptoms worsen or persist or if there are any questions or concerns that arise at home. Special discussion: Based on the patient's Hx, exam, and Dx evaluation, there is no indication for emergent surgery or inpatient Tx. It is understood by the patient/guardian that if the Sx's persist or worsen they need to return immediately for re-evaluation. Based on the history and exam findings, there is no indication for further emergent testing or inpatient evaluation. I discussed with the patient/guardian the need to see the OB Gyne specialist for further evaluation of the symptoms. I discussed with the patient/guardian the need to see the primary care provider for further evaluation of the symptoms. 05/26 19:33 Order name: Urine Culture snw 05/26 19:33 Order name: Urine Microscopic Only; Complete Time: 20:21 snw 05/26 20:01 Order name: Urine Dipstick-Ancillary; Complete Time: 20:04 EDMS 05/26 20:02 Order name: Urine --Ancillary (enter results); Complete Time: 20:16 ds4 05/26 20:16 Order name: Abo/rh Typing; Complete Time: 21:56 snw 05/26 20:16 Order name: Basic Metabolic Panel; Complete Time: 21:50 snw 05/26 19:33 Order name: Urine Dipstick-Ancillary (obtain specimen); Complete Time: 20:01 snw 05/26 19:33 Order name: Urine Test (obtain specimen); Complete Time: 20:01 snw 05/26 20:16 Order name: CBC with Diff; Complete Time: 21:32 snw 05/26 20:16 Order name: Quantitative Hcg; Complete Time: 21:50 snw 05/26 20:16 Order name: US Transvaginal Ob; Complete Time: 21:17 snw 05/26 20:16 Order name: IV Saline Lock; Complete Time: 20:34 snw 05/26 20:16 Order name: Labs collected and sent; Complete Time: 20:34 snw 05/26 20:16 Order name: NPO; Complete Time: 20:34 snw Administered Medications: No medications were administered Disposition Summary: 05/26/22 21:51 Discharge Ordered Location: Home snw Condition: Stable snw Diagnosis - Threatened snw - related conditions, unspecified, first trimester snw Followup: snw - With: Emergency Department - When: As needed - Reason: Worsening of condition Followup: snw - With: Private Physician - When: 2 - 3 days - Reason: Recheck today's complaints, Continuance of care, Re-evaluation by your physician Discharge Instructions: - Discharge Summary Sheet snw - Care snw - Threatened Miscarriage snw - First Trimester of snw - Abdominal Pain During , [id number] snw Forms: - Medication Reconciliation Form snw - Thank You Letter snw - Antibiotic Education snw - Prescription Opioid Use snw Signatures: Dispatcher [employer] Isabel George FNP-C SALES DEVELOPMENT MANAGER-Kortney Ohara tw5
[2022-05-26 22:16] VITALS: BP 117/66; TEMP 99.2; O2SAT 100
== END 2022-05-26 21:56 | disposition home or self-care (01) ==
LOC: ER 19:28
DX: O20.0 Threatened abortion (principal)
CPT/HCPCS: 36415; 76817; 80048; 81003; 81015; 81025; 84702; 85025; 86900; 86901; 87086; 87088; 99283